=== PATIENT | male | born 1985 | race Caucasian/White ===

== ENCOUNTER 2020-02-29 19:52 | Emergency (ER) | payer SELFPAY ==
[~2020-02-29] VITALS: Ht 170.2 cm; Wt 84.8 kg
[2020-02-29 20:01] VITALS: Ht 170.2 cm; Wt 84.8 kg
[2020-02-29 20:30] VITALS: BP 137/87
== END 2020-02-29 20:30 | disposition left against medical advice (07) ==
LOC: ED 19:52
DX: S09.8XXA Other specified injuries of head, initial encounter (principal); Y04.8XXA Assault by other bodily force, initial encounter; Y93.89 Activity, other specified; Y92.89 Other specified places as the place of occurrence of the external cause; Y99.8 Other external cause status